=== PATIENT | male | born 1990 ===

== ENCOUNTER 2018-04-30 23:42 | Emergency (ER) | payer SELFPAY ==
[2018-04-30 23:53] VITALS: BMI 24.2
[2018-05-01] VITALS: BP 165/96; PULSE 96; RESP 19; TEMP 98.6; O2SAT 100
--- NOTE | 2018-05-01 00:11 | C.PDOC ---
History Of Present Illness went to examine the patient, but the patient had eloped Time Seen by Provider: 05/01/18 00:07 Chief Complaint (Nursing): Trauma Past Medical History Vital Signs: Last Vital Signs Temp 98.6 F 04/30/18 23:53 Pulse 96 H 04/30/18 23:53 Resp 19 04/30/18 23:53 BP 165/96 H 04/30/18 23:53 Pulse Ox 100 04/30/18 23:53 - Medical History PMH: HTN Denies: Chronic Kidney Disease Family History: States: Unknown Family Hx - Social History Hx Alcohol Use: Yes (drinks beer q weekend) Hx Substance Use: No ED Course And Treatment O2 Sat by Pulse Oximetry: 100 Disposition - Disposition Disposition: ELOPEMENT - ER ONLY Disposition Time: 00:11 Condition: UNKNOWN Forms: [facility] (Polish) - Clinical Impression Clinical Impression: Eloped from emergency department
== END 2018-05-01 00:07 | disposition left against medical advice (07) ==
LOC: C.ER 23:42
DX: Z02.89 Encounter for other administrative examinations (principal); F19.10 Other psychoactive substance abuse, uncomplicated